=== PATIENT | female | born 1985 ===

== ENCOUNTER 2017-05-15 16:49 | Emergency (ER) | payer BC ==
[2017-05-15 17:04] VITALS: BP 128/80; PULSE 86; RESP 16; TEMP 97.8; O2SAT 95
[2017-05-15 17:51] LABS: BASO % 0.5 % (0.0-2.0); EOS # 0.1 K/uL (0.0-0.7); EOS % 1.1 % (0.0-4.0); LYMPH % 41.5 % (20.0-40.0); MEAN CELL VOLUME 90.3 fl (81.0-99.0); MEAN CORPUSCULAR HEMOGLOBIN 30.6 pg (27.0-31.0); MEAN CORPUSCULAR HGB CONC 33.9 g/dL (33.0-37.0); MEAN PLATELET VOLUME 8.6 fl (7.2-11.7); MONO # 0.8 K/uL (0.0-0.8); NEUT # 4.7 K/uL (1.8-7.0); NEUT % 48.9 % (50.0-75.0); NRBC % 0.2 % (0.0-0.0); RBC 4.59 Mil/uL (3.80-5.20); RED CELL DISTRIBUTION WIDTH 13.3 % (11.5-14.5); WHITE BLOOD COUNT 9.6 K/uL (4.8-10.8)
--- NOTE | 2017-05-15 17:51 | ED PDOC ---
HPI: SOB/CHF/COPD Time Seen by Provider: 05/15/17 17:15 Chief Complaint (Nursing): Shortness Of Breath History/Exam Limitations: no limitations Additional Complaint(s): 31 YO F w/ no significant PMH presents to the ED w/ SOB which started two hours [place]. SOB was associated with chest pressure in the center of her chest, and she started feeling light headed, but did not pass out. She sat down on the floor and felt a little better. She has had similar episodes in the past however they have never been this severe. She also complains of left leg pain. PMH: Low BP? in the past PSH: Tonsilectomy 15 years ago Breast Augmentation: 2012 Allergies: NKDA Med: Multivitamin and Biotin SH: Denies alcohol usage. Occasionally uses marajuana and occasional smoking 1- 2 cig a week. FH: Denies any family history of clots or DVT in the past - Risk Factors PE Risk Factors: Pos: Decreased Mobilty /Activity Neg: Extremity Immobilization/Fx, Recent Major Surgery, Recent Hospitalization, Active Cancer, Previous PE, CHF, Venous Stasis, Estrogen Usage , , Post-, Recent Major Trauma Past Medical History Reviewed: Historical Data, Nursing Documentation, Vital Signs Vital Signs: Last Vital Signs Temp 97.8 F 05/15/17 17:00 Pulse 86 05/15/17 17:00 Resp 16 05/15/17 17:00 BP 128/80 05/15/17 17:00 Pulse Ox 95 05/15/17 17:55 - Medical History Other PMH: Low Blood pressure - Surgical History Surgical History: Tonsillectomy Other surgeries: breast augmentation - Family History Family History: States: No Known Family Hx - Living Arrangements Living Arrangements: With Family - Social History Current smoker - smoking cessation education provided: Yes (1-2 cig a week) Alcohol: None Drugs: Cannabis - Allergies Allergies/Adverse Reactions: Allergies Allergy/AdvReac Type Severity Reaction Status Date / Time Penicillins Allergy ANAPHYLAXIS Verified 05/15/17 17:18 Curb-65 Severity Score - CURB-65 Severity Score Confusion: No Bun >19mg/dl (>7mmol/L): No Respiratory Rate greater than/equal to 30: No Systolic BP <90 or Diastolic BP less than/equal 60mmHg: No Age >64: No Curb-65 Score: 0 Percentage 30-day mortality: 0.6% Wells Criteria for PE - Wells Criteria for Pulmonary Embolism Clinical Signs and Symptoms of DVT: No P.E is #1 Diagnosis, or Equally Likely: No Heart Rate >100: No Immobilization at least 3 days;Surgery previous 4 weeks: No Previous, objectively diagnosed PE or DVT: No Hemoptysis: No Malignancy w/treatment within 6 months, or palliative: No Total Score: 0 Review of Systems ROS Statement: Except As Marked, All Systems Reviewed And Found Negative Physical Exam - Physical Exam Appears: Positive for: No Acute Distress Head Exam: Positive for: ATRAUMATIC, NORMAL INSPECTION, NORMOCEPHALIC Skin: Positive for: Normal Color, Warm, Dry Eye Exam: Positive for: Normal appearance Neck: Positive for: Normal Cardiovascular/Chest: Positive for: Regular Rate, Rhythm, Chest Non Tender Respiratory: Positive for: Normal Breath Sounds. Negative for: Rales, Wheezing , Respiratory Distress Gastrointestinal/Abdominal: Positive for: Normal Exam, Bowel Sounds, Soft. Negative for: Tenderness Back: Negative for: L CVA Tenderness, R CVA Tenderness Extremity: Positive for: Calf Tenderness (left calf tenderness on palpation). Negative for: Pedal Edema Neurologic/Psych: Positive for: Alert, telecom manager II-XII, Oriented, Motor/Sensory Deficits, Cerebellar Tests (WNL) - Laboratory Results Result Diagrams: 05/15/17 17:44 05/15/17 17:44 - ECG O2 Sat by Pulse Oximetry: 95 Medical Decision Making Medical Decision Making: CBC: WNL CMP: WNL 6:30 pm Patient states symptoms are improving Signing out to Dr. Arredondo Disposition - Clinical Impression Clinical Impression: SOB (shortness of breath) - Disposition Disposition Time: 18:41 Condition: STABLE Forms: [employer] (Senegalese) Patient Signed Over To: Will Arredondo
[2017-05-15 17:54] LABS: SQUAMOUS EPITHIAL 1 /hpf (0-5); URINE BACTERIA RARE (<OCC); URINE BILIRUBIN NEGATIVE (NEGATIVE); URINE BLOOD NEGATIVE (NEGATIVE); URINE CLARITY CLEAR (Clear); URINE COLOR STRAW (YELLOW); URINE GLUCOSE (UA) NEG (Normal); URINE LEUKOCYTE ESTERASE NEG Leu/uL (Negative); URINE PROTEIN NEGATIVE (NEGATIVE); URINE UROBILINOGEN 0.2-1.0 mg/dL (0.2-1.0)
[2017-05-15 18:05] LABS: ALB/GLOB RATIO 1.1 (1.0-2.1); ALBUMIN 4.6 g/dL (3.5-5.0); ALT/SGPT 25 U/L (9-52); AST/SGOT 25 U/L (14-36); BLOOD UREA NITROGEN 15 mg/dl (7-17); CALCIUM 10.1 mg/dL (8.4-10.2); GFR AFRICAN-AMERICAN > 60; GFR NON-AFRICAN AMERICAN > 60
[2017-05-15 18:13] LABS: BARBITURATES, UR NEGATIVE (NEGATIVE); BENZODIAZEPINES, UR NEGATIVE (NEGATIVE); OPIATES, UR NEGATIVE (NEGATIVE); PHENCYCLIDINE, UR NEGATIVE (NEGATIVE)
--- NOTE | 2017-05-15 19:12 | US ---
EXAM: US Duplex Left Lower Extremity Veins EXAM DATE/TIME: 05/15/2017 5:35 PM CLINICAL HISTORY: 31 years old, female; Pain; Leg, lower; Left; Additional info: Left leg pain SOB TECHNIQUE: Real-time ultrasound scan of the veins of the left lower extremity with color Doppler flow, spectral waveform analysis and compression. COMPARISON: There are no prior studies for comparison. FINDINGS: Deep veins: Common femoral, superficial femoral, popliteal and posterior tibial veins were evaluated. All veins examined are compressible. There are no intraluminal filling defects. There is expected blood flow on Doppler imaging. There is change in waveform with augmentation. Impression: No deep venous thrombosis in the visualized vascular segments of the left lower extremity
[2017-05-15] MEDS ORDERED: Iodixanol 320 MG/ML 100 ML BOTTLE IV ONE (19:53)
[2017-05-15] MEDS ORDERED: Sodium Chloride 0.9% 0 ML ONE (19:53)
--- NOTE | 2017-05-15 20:26 | ED PDOC ---
- Laboratory Results Result Diagrams: 05/15/17 17:44 05/15/17 17:44 - ECG O2 Sat by Pulse Oximetry: 95 Disposition Counseled Patient/Family Regarding: Studies Performed, Diagnosis, Need For Followup - Clinical Impression Clinical Impression: SOB (shortness of breath), Anxiety - POA Present On Arrival: None - Disposition Referrals: [facility] [Outside] Disposition: Routine/Home Disposition Time: 20:26 Condition: FAIR Instructions: Anxiety, Adult (DC) Forms: OWM (Kyrgyz)
== END 2017-05-15 20:34 | disposition home or self-care (01) ==
LOC: H.ER 16:49
DX: R06.02 Shortness of breath (principal); F17.200 Nicotine dependence, unspecified, uncomplicated; J44.9 Chronic obstructive pulmonary disease, unspecified; Z88.0 Allergy status to penicillin
CPT/HCPCS: 80053; 81003; 81025; 84484; 85025; 85378; 93971; 99284; G0480